=== PATIENT | female | born 1995 | race Caucasian/White ===

== ENCOUNTER 2024-07-22 09:21 | Emergency (ER) | payer OTHER, SELFPAY ==
[2024-07-22 09:31] VITALS: BP 125/76
[2024-07-22 10:33] LABS: % Basophils 0.3 % (0-2); % Eosinophils 1.2 % (0-6); % Immature Granulocytes 0.3 % (0-0.5); % Lymphocytes 8.9 % (20.5-51.1); % Monocytes 6.3 % (1.7-9.3); Absolute Eosinophils 0.1 10^3/uL (0-0.7); Absolute Lymphocytes 0.9 10^3/uL (1.2-3.4); Absolute Monocytes 0.7 10^3/uL (0.1-0.6); Absolute Neutrophils 8.6 10^3/uL (1.4-6.5); Hematocrit 38.4 % (37.0-47.0); Hemoglobin 13.1 g/dL (12.0-16.0); Mean Corp Hgb Conc. 34.1 g/dL (33.0-37.0); Mean Corpuscular Hgb 30.5 pg (27.0-31.0); Mean Corpuscular Volume 89.3 fL (81.0-99.0); Mean Platelet Volume 9.8 fL (7.4-10.4); Nucleated Red Blood Cells % 0 %; Platelet Count 247 10^3/uL (130-400); Red Cell Dist. Width 13.1 % (11.5-14.5); White Blood Cell Count 10.3 10^3/uL (4.8-10.8)
[2024-07-22 10:52] LABS: ALT (SGPT) 14 U/L (0-35); AST (SGOT) 22 U/L (14-36); Albumin 4.6 g/dl (3.5-5.0); Alkaline Phosphatase 48 U/L (38-126); Blood Urea Nitrogen 9 mg/dl (7-17); Calcium 9.2 mg/dl (8.4-10.2); Carbon Dioxide 25 mmol/L (22-30); Chloride 102 mmol/L (98-107); Glucose 96 mg/dl (70-99); HCG, Serum Qualitative Screen Negative; Lipase 30 U/L (23-300); Potassium 5.1 mmol/L (3.5-5.1); Sodium 139 mmol/L (135-145); Total Bilirubin 0.8 mg/dl (0.2-1.3); Total Protein 7.1 g/dl (6.3-8.2); eGFR > 60.00
--- NOTE | 2024-07-22 11:37 | ED.GENMED ---
History of Present Illness
<Magaly Shetty MD, Resident - Last Filed: 07/22/24 15:12>
General
Chief Complaint: Abdominal Symptoms
Time Seen by Provider: 07/22/24 10:46
History of Present Illness
History of Present Illness:
This is a 29-year-old female with past medical history of hypothyroidism who presents to ER complaining of lower abdominal tenderness more prominent on the right, nausea, chills, sweats. Patient reports recent travel to [facility], returned on
Thursday. She reports while she was in [facility] she was fine but ' felt a little bit off'. Three days ago, she began to experience lower abdominal tenderness. In addition she admits chills, sweats, nausea. She denies vomiting. She denies
diarrhea, constipation. She reports her last menstrual period was 1 week ago. She denies vaginal discharge, bleeding. She denies any sick contacts.
Past History
<Magaly Shetty MD, Resident - Last Filed: 07/22/24 15:12>
Past History
ED Past Surgical History: Other (Thyroidectomy)
Social History
Tobacco: Non-smoker
Alcohol: Occasional
Drug: None
Personal:
Living: with family
Employment: Employed
Review of Systems
<Magaly Shetty MD, Resident - Last Filed: 07/22/24 15:12>
Review of Systems
All Other Systems: ROS reviewed and negative except as documented in HPI and ROS
Phy Exam
<Magaly Shetty MD, Resident - Last Filed: 07/22/24 15:12>
General Physical Exam
General Presentation: well appearing and mild distress
ENT Exam
ENT Exam: EOMI
Cardiovascular Exam
Cardiovascular Exam: regular rate/rhythm and no edema
Pulmonary Exam
Pulmonary Exam: lungs clear and no respiratory distress
Gastrointestinal Exam
Gastrointestinal Exam: normal bowel sounds, soft, non distended and other (Generalized right lower abdominal tenderness, more prominent in the right, no guarding. )
Neurological Exam
Neurological Exam: alert and oriented x3
Psychiatric Exam
Psychiatric Exam: normal mood/affect
Course
<Magaly Shetty MD, Resident - Last Filed: 07/22/24 15:12>
Orders/Labs/Results
Orders:
Orders
07/22/24 10:00
Test Result ONCE
07/22/24 10:21
Complete Blood Count/With Diff Urgent
Comprehensive Metabolic Panel Urgent
HCG, Serum Qualitative Screen Urgent
Comment: Notify provider if positive test present
Lipase Urgent
07/22/24 11:33
CT Abd/pel W Iv And Oral Contr Urgent
Comment:
Reason For Exam: lower abdominal tenderness
Iohexol [Omnipaque] See Protocol PO NOW STA
07/22/24 11:41
Ondansetron Injectable [Zofran] 4 mg IV NOW STA
07/22/24 14:32
Urinalysis Reflex To Culture Urgent
Date Specimen was Collected: 07/22/24
Time Specimen was Collected: 14:11
Abnormal Lab Results
07/22/24 07/22/24
10:21 14:32
Absolute Neuts (auto) 8.6 H 10^3/uL
(1.4-6.5)
Absolute Lymphs (auto) 0.9 L 10^3/uL
(1.2-3.4)
Absolute Monos (auto) 0.7 H 10^3/uL
(0.1-0.6)
Neutrophils % 83.0 H %
(42.2-75.2)
Lymphocytes % 8.9 L %
(20.5-51.1)
Urine Ketones 2+ A
(Negative)
07/22/24 10:21
07/22/24 10:21
Vital Signs
Initial and Last Documented VS:
Initial Vital Signs
Temp Pulse Resp BP Pulse Ox
100.3 F 121 16 125/76 100
07/22/24 09:31 07/22/24 09:31 07/22/24 09:31 07/22/24 09:31 07/22/24 09:31
Last Documented Vital Signs
Temp Pulse Resp BP Pulse Ox
100.3 F 91 16 106/60 100
07/22/24 09:31 07/22/24 14:05 07/22/24 09:31 07/22/24 14:05 07/22/24 14:05
<Grady Hernandez, DO - Last Filed: 07/22/24 14:03>
Orders/Labs/Results
Orders:
Orders
07/22/24 10:00
Test Result ONCE
07/22/24 10:21
Complete Blood Count/With Diff Urgent
Comprehensive Metabolic Panel Urgent
HCG, Serum Qualitative Screen Urgent
Comment: Notify provider if positive test present
Lipase Urgent
07/22/24 11:33
CT Abd/pel W Iv And Oral Contr Urgent
Comment:
Reason For Exam: lower abdominal tenderness
Iohexol [Omnipaque] See Protocol PO NOW STA
07/22/24 11:41
Ondansetron Injectable [Zofran] 4 mg IV NOW STA
07/22/24 14:32
Urinalysis Reflex To Culture Urgent
Date Specimen was Collected: 07/22/24
Time Specimen was Collected: 14:11
Abnormal Lab Results
07/22/24 07/22/24
10:21 14:32
Absolute Neuts (auto) 8.6 H 10^3/uL
(1.4-6.5)
Absolute Lymphs (auto) 0.9 L 10^3/uL
(1.2-3.4)
Absolute Monos (auto) 0.7 H 10^3/uL
(0.1-0.6)
Neutrophils % 83.0 H %
(42.2-75.2)
Lymphocytes % 8.9 L %
(20.5-51.1)
Urine Ketones 2+ A
(Negative)
07/22/24 10:21
07/22/24 10:21
Vital Signs
Initial and Last Documented VS:
Initial Vital Signs
Temp Pulse Resp BP Pulse Ox
100.3 F 121 16 125/76 100
07/22/24 09:31 07/22/24 09:31 07/22/24 09:31 07/22/24 09:31 07/22/24 09:31
Last Documented Vital Signs
Temp Pulse Resp BP Pulse Ox
100.3 F 91 16 106/60 100
07/22/24 09:31 07/22/24 14:05 07/22/24 09:31 07/22/24 14:05 07/22/24 14:05
<Magaly Shetty MD, Resident - Last Filed: 07/22/24 15:12>
MDM/Problems Addressed
MDM/Problems Addressed:
29-year-old female presents to the ER complaining of generalized lower abdominal tenderness, chills, nausea. On physical examination, abdomen soft, nondistended, no guarding, tenderness in the lower region more prominent on the right. Temperature
on presentation 100.3. Laboratory unremarkable. Etiology likely appendicitis. Will evaluate with an abdomen CT scan. IV Zofran for nausea.
Update; CT scan of abdomen indicative of mild acute colitis. Will discharge on Augmentin. Follow-up with gastroenterology outpatient for further workup.
<Magaly Shetty MD, Resident - Last Filed: 07/22/24 15:12>
*Critical Care Note
Total Time (30-74mins, 75-104mins- exclusive of procedures): Not Applicable
ED Attending Note
<Magaly Shetty MD, Resident - Last Filed: 07/22/24 15:12>
-
Portions of this chart may have been created with voice recognition software.� Occasional wrong word or��sound alike� substitutions may have occurred due to the inherent limitations of voice recognition software.
<Grady Hernandez, - Last Filed: 07/22/24 14:03>
ED Attending Note
Patient seen and examined by attending physician: Yes
I performed a history and physical exam of patient and discussed management with resident, I reviewed resident's note and agree with documented findings and plan of care.: Yes
ED Attending Note:
I have reviewed and agree with history and treatment plan by Magaly Shetty MD. My exam revealed 29-year-old female with temperature 100.3, bilateral lower abdominal tenderness, right greater than left. Concern for appendicitis and
diverticulitis. CT abdomen pelvis pending. Also possibly viral cause.
Discharge Plan
Departure
Patient Disposition: Home (Routine Discharge)
Date of Disposition: 07/22/24
Time of Disposition: 14:59
Patient with high blood pressure during this ER visit?: No
Discharge Problem:
Acute colitis
Prescriptions:
New
amoxicillin-pot clavulanate [Augmentin] 500-125 mg tablet
1 tab PO Q12H 5 Days Qty: 10 0RF
Referrals:
Shauna Garcia DO [Family Provider] - Follow up in 1 week
Tran Braun DO [Active] - Next open appointment
Activity Restrictions/Additional Instructions:
Please return for any worsening symptoms.
Please follow up with the information systems supervisor above at the first available appointment, preferably this week.
Your abdominal imaging finding is consistent with a mild acute colitis. Please use antibiotics (Augmentin) as prescribed above.
You may return at any time if you have further concerns.
Thank you for choosing [facility].
Interventions
Interventions:
*Risk Screen - Suicide Last Done: 07/22/24 09:31
*Neglect/Abuse Screening Last Done: 07/22/24 09:31
QH-Ytfvty-Krmhtbnihe Assessment Last Done: 07/22/24 11:57
Discharge Date and Time
Print Language: ALBANIAN
[2024-07-22] MEDS: OMNIPAQUE 50 ML PO (11:45)
[2024-07-22] MEDS: ZOFRAN 4 MG IV (11:52)
[2024-07-22 11:56] VITALS: BMI 22.5
[2024-07-22 14:05] VITALS: BP 106/60
[2024-07-22 14:40] LABS: Urine Albumin Negative (Neg - Trace); Urine Bilirubin Negative (Negative); Urine Character Clear (Clear); Urine Color Yellow; Urine Glucose Negative (Negative); Urine Ketone 2+ (Negative); Urine Leukocyte Negative (Negative); Urine Nitrite Negative (Negative); Urine Occult Blood Negative (Negative); Urine Urobilinogen Negative (Neg - 1+)
== END 2024-07-22 15:15 | disposition home or self-care (01) ==
LOC: EMR 09:21
PROVIDERS: Student in an Organized Health Care Education/Training Program; EMERGENCY PHYSICIAN Emergency Medicine; FAMILY PHYSICIAN Family Medicine
DX: K52.9 Noninfective gastroenteritis and colitis, unspecified (principal); E03.9 Hypothyroidism, unspecified
CPT/HCPCS: 99284; 96374; 74177; 80053; 81003; 83690; 84703; 85025; Q9967